=== PATIENT | male | born 1950 | race Caucasian/White ===

== ENCOUNTER 2017-12-22 14:12 | Emergency (ER) | payer MEDICARE, BC ==
[2017-12-22 15:10] VITALS: BP 118/71
--- NOTE | 2017-12-22 15:26 | UC ---
Dizzy HPI HPI Summary: dizziness x 4 days was diagnosed with Bronchitis 4 days ago, was placed on Amoxicillin and prednisone . has been dizzy, lightheaded since. + fatigue, sob , no fever, no chills, no chest pain - History Of Current Complaint Chief Complaint: UCGeneralIllness Stated Complaint: DIZZINESS,COUGH, HEADACHE Time Seen by Provider: 12/22/17 14:30 Hx Obtained From: Patient, Family/Insurance Territory Manager Onset/Duration: Gradual Onset, Lasting Days - 4, Still Present Timing: Constant Severity Initially: Severe Severity Currently: Severe Pain Intensity: 4 Character: Head Spinning, Room Spinning, Lightheaded, Weak, Dizzy Aggravating Factor(s): Exertion Alleviating Factor(s): Nothing Associated Signs And Symptoms: Positive: SOB, Palpitations. Negative: Nausea, Vomiting, Diaphoresis, Tinnitus, Chest Pain, Unsteady Gait, Visual Changes, Decreased Oral Intake, Change In Medication - Allergies/Home Medications Allergies/Adverse Reactions: Allergies Allergy/AdvReac Type Severity Reaction Status Date / Time No Known Allergies Allergy Verified 12/22/17 14:29 Home Medications: Home Medications Amoxicillin/Clavulanate TAB* [Augmentin TAB 875*] 12/22/17 [History] Fluorouracil [Efudex] 12/22/17 [History] guaiFENesin [Cough Syrup] 12/22/17 [History] predniSONE [Prednisone] 12/22/17 [History] PMH/Surg Hx/FS Hx/Imm Hx - Additional Past Medical History Additional PMH: skin cancer hyperlipidemia Cardiovascular History: Hypertension - Surgical History Surgical History: Yes Surgery Procedure, Year, and Place: photo therapy for skin CA, cyst removed from rt 3rd finger - Family History Known Family History: Positive: Hypertension - Social History Alcohol Use: Daily Substance Use Type: None Smoking Status (MU): Heavy Every Day Tobacco Smoker Type: Cigarettes Amount Used/How Often: <1 ppd Household Exposure Type: Cigarettes Review of Systems Constitutional: Negative Eyes: Negative ENT: Negative Respiratory: Shortness Of Breath, Cough Cardiovascular: Palpitations Genitourinary: Negative Neurological: Weakness Is Patient Immunocompromised?: No All Other Systems Reviewed And Are Negative: Yes Physical Exam Triage Information Reviewed: Yes Appearance: No Pain Distress, Well-Nourished Vital Signs: Initial Vital Signs Temp 98.6 F 12/22/17 14:34 Pulse 72 12/22/17 14:34 Resp 18 12/22/17 14:34 BP 123/88 12/22/17 14:34 Pulse Ox 99 12/22/17 14:34 Vital Signs Reviewed: Yes Eye Exam: Normal Eyes: Positive: Conjunctiva Clear ENT: Positive: Normal ENT inspection, Hearing grossly normal, Pharynx normal Neck: Positive: Supple, Nontender, No Lymphadenopathy Respiratory: Positive: Chest non-tender, Lungs clear, Normal breath sounds Cardiovascular: Positive: Other: - irr/irr Abdominal Exam: Normal Skin Exam: Normal Diagnostics - EKG Cardiac Rhythm: AFib: New Ectopy: None ST Segment: Normal Dizzy Course/Dx - Course Course Of Treatment: will have the pt. go to [facility] ED for eval and tx of new onset Afib - Differential Dx/Diagnosis Provider Diagnoses: afib. dizziness Discharge - Discharge Plan Condition: Good Disposition: TRANS HIGHER LVL OF CARE FAC Patient Education Materials: A-fib (Atrial Fibrillation) (ED), Dizziness (ED) Referrals: Leslee Gaviria NP [Primary Care Provider] - Additional Instructions: please go to [facility] ED for evaluation and tx
== END 2017-12-22 15:23 | disposition short-term general hospital (02) ==
LOC: UCCORT 14:12
DX: I48.91 Unspecified atrial fibrillation (principal); R42 Dizziness and giddiness; I10 Essential (primary) hypertension; C44.90 Unspecified malignant neoplasm of skin, unspecified; F17.210 Nicotine dependence, cigarettes, uncomplicated
CPT/HCPCS: 93005; 99212; G0463